=== PATIENT | male | born 1960 | race Caucasian/White ===

== ENCOUNTER → 2024-08-18 06:03 | Day surgery (SDC) | payer MEDICARE, OTHER, SELFPAY ==
[2024-08-13 12:47] VITALS: BMI 29.7
--- NOTE | 2024-08-13 13:47 | HPS.HSE ---
Family Physician
-
Family Physician: NO INTERVIEW UNKNOWN
Chief Complaint
-
Cerebrovascular accident due to embolism of the right posterior cerebral artery.
History of Present Illness
The patient is a 63 year old male presenting today after suffering a cerebrovascular accident due to an embolism of the right posterior cerebral artery. This event took place in September 2021 and occurred in the context of a fibroblastoma
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 He is on current oral anticoagulation with Xarelto. He does report residual left sided upper and lower extremity weakness and neuropathic pain. His symptoms are gradually improving with physical therapy and
Gabapentin. He does currently ambulate with a single point cane. He will undergo a repeat transesophageal echocardiogram to assess whether his mitral valve morphology has changed. He denies any current complaints today such as chest pain, shortness
of breath, palpitations, nausea, vomiting, diarrhea, lightheadedness, dizziness, cough, sore throat, or fever.
Medical History
Past Medical History
Past Medical History: Reports Other
Additional Past Medical History:
1. 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
2. Hypertension.
3. Hyperlipidemia.
4. Carotid arteriosclerosis.
5. Aortic atherosclerosis.
6. Trace mitral regurgitation.
7. Mild aortic regurgitation.
8. Mild tricuspid regurgitation.
9. Chronic dyspnea on exertion.
10. GERD.
11. Colon polyps.
12. Diverticulosis.
13. Hemorrhoids, status post hemorrhoidectomy 11/2022.
14. Ambulatory dysfunction.
15. Balance difficulties.
16. Essential tremor.
17. Vertigo.
18. Cervical degenerative disc disease.
19. Osteoarthritis.
20. BPH.
21. Depression.
22. History of COVID 19 infection.
23. Infrequent tobacco abuse.
Past Surgical History: Reports Other
Additional Past Surgical History:
1. Transesophageal echocardiogram x2.
2. Right rotator cuff repair.
3. Varicocelectomy.
4. Hemorrhoidectomy.
5. Tonsillectomy.
6. Colonoscopy with polypectomy.
Social History
Tobacco: Other (He infrequently smokes a pipe. He denies any cigarette smoking. )
Alcohol: Other (Rare use reported. )
Personal:
Living: Other (He lives with his and mother in a 2 story home. )
Family History
Family History: Not pertinent
Allergies / Home Medications
Allergy/Medication List:
Home medications:
1. Atorvastatin 40 mg p.o. every evening.
2. Baclofen 10 mg p.o. twice a day.
3. Cholecalciferol 50 mcg p.o. daily.
4. Duloxetine 60 mg p.o. daily.
5. Gabapentin 300 mg p.o. every 4 hours.
6. Xarelto 20 mg p.o. every evening.
7. Tamsulosin 0.4 mg p.o. daily.
Allergies: No known allergies.
Review of Systems
-
A 12 point ROS was completed and negative except as noted: Yes
Physical Exam
Vital Signs
Blood pressure 126/78. Heart rate 82. Respirations 18. Pulse ox 94% on room air.
Height 5 feet, 4 inches. Weight 78.3 kg. BMI 29.6.
Physical Exam
General: Well Developed, Well Nourished and No Apparent Distress
HEENT: NormoCephalic, Moist mucous membranes, Atraumatic and PERRLA
Respiratory: Clear
Cardiac: Regular Rhythm
GI: Soft, Non Tender and Non Distended
Musculoskeletal: Other (Left arm weakness more apparent than left leg. He ambulates with a cane. )
Neuro: AO x 3 and Other (Slow speech but is conversational. )
Laboratory Results
-
EKG 08/13/2024: Normal sinus rhythm.
Transesophageal echocardiogram 07/31/2023: Normal left ventricular systolic function. Left ventricular ejection fraction is 55-60%. There is focal nodular thickening (about 4 mm) of the anterior mitral valve (A2). There is trace mitral
regurgitation. Mild aortic regurgitation. Mild tricuspid regurgitation. No significant change since the prior study of December 2021.
Impression/Plan
-
IMPRESSION/PLAN:
1. Cerebrovascular accident due to embolism of the right posterior cerebral artery: The patient is in need of a transesophageal echocardiogram to evaluate mitral valve morphology with Dr. Theo Ramos on 08/18/2024. The benefits and risks of the
procedure have been explained to the patient. The patient understands these risks and wishes to proceed.
== END ==
LOC: CATH 06:03
PROVIDERS: ATTENDING PHYSICIAN Internal Medicine Cardiovascular Disease; FAMILY PHYSICIAN Family Medicine; OTHER PHYSICIAN Internal Medicine Cardiovascular Disease
DX: I08.3 Combined rheumatic disorders of mitral, aortic and tricuspid valves (principal); I25.10 Atherosclerotic heart disease of native coronary artery without angina pectoris; E78.5 Hyperlipidemia, unspecified; I70.0 Atherosclerosis of aorta; R06.09 Other forms of dyspnea; K21.9 Gastro-esophageal reflux disease without esophagitis; Z86.0100 Personal history of colon polyps, unspecified; K57.90 Diverticulosis of intestine, part unspecified, without perforation or abscess without bleeding; Z87.19 Personal history of other diseases of the digestive system; G25.0 Essential tremor; R42 Dizziness and giddiness; M19.90 Unspecified osteoarthritis, unspecified site; M50.30 Other cervical disc degeneration, unspecified cervical region; N40.0 Benign prostatic hyperplasia without lower urinary tract symptoms; F32.A Depression, unspecified; Z86.16 Personal history of COVID-19; Z90.89 Acquired absence of other organs; F17.290 Nicotine dependence, other tobacco product, uncomplicated; Z79.899 Other long term (current) drug therapy; Z79.01 Long term (current) use of anticoagulants; Z86.73 Personal history of transient ischemic attack (TIA), and cerebral infarction without residual deficits; I10 Essential (primary) hypertension; I08.2 Rheumatic disorders of both aortic and tricuspid valves
CPT/HCPCS: 93312; 93320; 93325